=== PATIENT | female | born 1960 | race African-American/Black ===

== ENCOUNTER 2018-11-21 06:48 | Day surgery (SDC) | payer OTHER ==
[~2018-11-21] VITALS: Ht 165.1 cm; Wt 56.8 kg
[2018-11-21] MEDS ORDERED: SOD CHLORIDE 0.9% 1,000 ML IV SCH ×2 (07:57→12:30)
[2018-11-21] MEDS ORDERED: HYDR-4011 PO (08:00)
[2018-11-21] MEDS ORDERED: ATOR20TA38 PO (08:00)
[2018-11-21] MEDS ORDERED: PANT40TA4 PO (08:01)
[2018-11-21] MEDS ORDERED: AMIO200T4 PO (08:01)
[2018-11-21] MEDS ORDERED: ASPI-817 PO (08:02)
[2018-11-21] MEDS ORDERED: CARV3.1260 PO (08:04)
[2018-11-21] MEDS ORDERED: LISI-313 PO (08:04)
[2018-11-21] MEDS ORDERED: IPRA4AER INHALATION (08:05)
[2018-11-21] MEDS ORDERED: POLY17PO6 PO (08:06)
[2018-11-21] MEDS ORDERED: BENZ1LOZ52 MM (08:06)
[2018-11-21] MEDS ORDERED: INSU100I12 SQ (08:08)
[2018-11-21] MEDS ORDERED: INSU100V3 IJ (08:08)
[2018-11-21 08:27] VITALS: Ht 165.1 cm; Wt 56.8 kg
[2018-11-21 08:36] VITALS: BP 120/80; PULSE 94; RESP 20
--- NOTE | 2018-11-21 08:51 | NUR ---
PT ARRIVED VIA AMBULANCE TRANSPORT FROM [facility] BUT ORDERS AND PAPERS WERE ALL FROM THE [facility]. PT CRYING AND UPSET. JUST WANTS TO GO HOME. [facility] AWARE THAT PT IS HERE AND UNWILLING TO SIGN CONSENT UNLESS WE CAN GUARANTEE SHE GOES BACK HOME TO [place]. PT IS BEGGING AND PLEADING TO NOT GO BACK TO [facility]. MY, CHARGE NURSE WAS ABLE TO GET SCANT REPORT AND SOME HX FROM [place] AT [facility]. SIN FROM [facility] CAME TO SPEAK TO PT. PT STILL CRYING AND REFUSED TO SIGN CONSENT. SHE IS ALERT AND ORIENTED. SIN CALLED THE IN HOUSE MAGNETIC TAPE COMPOSER OPERATOR. SHE IS AWARE THE PT IS REFUSING. PT WANTS TO TALK WITH DR. ADAMS. IT'S NOW [address] ADAMS WILL BE ARRIVING TO [facility] SOON. [facility] AWARE PT WANTS TO SPEAK TO DR. ADAMS. Addendum: 11/21/18 at 0904 by CHEO MORRIS RN UNABLE TO DO A COMPLETE INTERVIEW HX SINCE PT IS JUST CRYING AND ASKING TO GO HOME. PT IS ON A MONITOR AND MY HAS ME AT HER BEDSIDE TO KEEP HER COMFORTABLE AND SAFE.
--- NOTE | 2018-11-21 09:55 | NUR ---
FINALLY ABLE TO REACH ASHOK ON THE PHONE AND HE SPOKE WITH HIS , I ALSO SPOKE WITH HER ELDEST DAUGHTER "MARINA" AND THEY ARE WILLING TO TAKE HER BACK HOME AFTER PROCEDURE. PT VERY HAPPY AND CRYING FOR MARIA DEL ROSARIO THAT SHE DOES NOT HAVE TO RETURN TO [facility]. QUALITY ASSURANCE TESTER NUMBER GIVEN TO MARINA TO MAKE ARRANGEMENTS FOR HER MOM TO RETURN HOME AFTER CATH PROCEDURE.
[2018-11-21] MEDS ORDERED: HEPARIN 1000 UNITS/ML 10 ML INJ ONE (11:12)
[2018-11-21] MEDS ORDERED: NITROGLYCERIN (IC) 100 MCG/ML INJ ONE (11:12)
[2018-11-21] MEDS ORDERED: IODIXANOL LOCM 100 ML BTL ONE (11:12)
[2018-11-21] MEDS ORDERED: VERAPAMIL 5 MG INJ ONE (11:12)
[2018-11-21] MEDS ORDERED: FENTAnyl 50 MCG/ML VIAL ONE (11:12)
[2018-11-21] MEDS ORDERED: MIDAZOLAM 1 MG/ML 2 ML INJ ONE (11:12)
[2018-11-21] MEDS ORDERED: LIDOCAINE 1% (MDV) 20 ML INJ ONE (11:12)
--- NOTE | 2018-11-21 12:29 | SIPON ---
Date/Time of Note Date/Time of Note DATE: 11/21/18 TIME: 12:26 Operative Report Preoperative Diagnosis 1. Cardiomyopathy Postoperative Diagnosis 1.non-obstructive cad Operation/Procedure Performed 1.[facility] Surgeon see signature line optometric assistant Wilver Anesthesia: moderate sedation Estimated blood loss: minimal Transfusion Required none Specimen none Grafts/Implants none Complications none FRANCESCA ADAMS Nov 21, 2018 12:29
[2018-11-21] MEDS ORDERED: ACETAMINOPHEN 325 MG TAB PO PRN (12:30)
[2018-11-21] MEDS ORDERED: ONDANSETRON 4 MG INJ IV PRN (12:30)
[2018-11-21] MEDS ORDERED: AL HYDROX/MG HYDROX/SIMETH 30 ML CUP PO PRN (12:30)
[2018-11-21] MEDS ORDERED: morphine 2 MG INJ IV PRN (12:30)
--- NOTE | 2018-11-21 14:20 | NUR ---
PACU Time: 1228 to 1420.
[2018-11-21 14:30] VITALS: BP_SYST 114; BP_SYST 116; BP_DIAS 53; BP_DIAS 70; PULSE 74; PULSE 90; RESP 16; RESP 20
--- NOTE | 2018-11-21 14:40 | NUR ---
1430, RECEIVED PT FROM PACU, VS STABLE. NO CP NO DISCOMFORT. PT TEARFUL, WANTS TO GO HOME AND DOES NOT WANT TO GO TO BOARD AND CARE. DR ADAMS NOTIFIED AND DR ADAMS WANTS PT TO GO TO FACILITY FIRST PRIOR TO GOING HOME. PT MADE AWARE. MY CHARGE NURSE TO TALK TO PT /DUAGHTER.
--- NOTE | 2018-11-21 14:54 | NUR ---
ENDORSED TO MARISSA FELIPE TO ASSUME CARE.
--- NOTE | 2018-11-21 15:00 | NUR ---
TRANSPORTATION FOR PT TO GO BACK TO FACILITY WHERE SHE C[facility] FROM, [facility], WILL BE HERE AT 4 PM. REPORT TO THE FACILITY DONE, SPOKE WITH CHICA PEREZ
--- NOTE | 2018-11-21 15:29 | CARRPT ---
DATE OF PROCEDURE: 11/21/2018 TYPE OF PROCEDURES: 1. Left heart catheterization. 2. Coronary angiography. 3. Moderate conscious sedation. ATTENDING PHYSICIAN: Francesca Hammer MD REFERRING PHYSICIAN: Mian Chairez MD INDICATION: Cardiomyopathy, severely depressed left ventricular ejection fraction. BRIEF HISTORY AND HOSPITAL COURSE: Ms. Will is a 58-year-old female with a history of polysubstan ce abuse, who presented with complaints of shortness of breath who underwent a 2D echo revealing a se verely depressed left ventricular ejection fraction of 15% to 20%. Therefore, the patient was placed on medical therapy and has now been referred to cardiac catheterization lab and assess possibility o f significant obstructive coronary artery disease lending to symptoms of shortness of breath and hist ory of depressed left ventricular function. DESCRIPTION OF PROCEDURE: After informed consent was obtained, the patient was brought to the [facility] cardiac catheterization lab where her right radial area was prepped and draped in the usual sterile fashion. A 2% lidocaine was infiltrated into right radial area in order to ach ieve adequate anesthesia. Using the modified Seldinger technique, the patient's radial artery was ca nnulated and a 6-Russian arterial sheath was placed. A 6-Russian JL3.5 catheter was used to cannulate the left main coronary ostium. With contrast injection, multiple views of the left coronary arterial system were obtained. A JL3.5 was removed over a guidewire and a JR4 was used to cannulate the righ t coronary arterial ostium. With contrast injection, multiple views of the right coronary arterial s ystem was obtained. JR4 was removed over a guidewire and a 6-Russian pigtail was passed down the aort a and placed in LV. LVEDP was measured. A 20 mL of contrast were injected and pulled back across th e aortic valve to assess for significant gradient, which was not and removed. Subsequently, this com pleted the procedure. The patient's sheath was removed. TR band was applied. There were no noted c omplications. FINDINGS: Coronary angiography: Left main is 5 mm, no significant focal stenoses. Circumflex proxi jorge is a 3 mm vessel and has no significant focal stenosis in this portion. It then bifurcates int o the circ continuation AV groove and obtuse marginal has approximately a 40% stenosis there and anot her obtuse marginal with 30% stenosis there. The LAD proximally is a 3.5 mm vessel and proxima lly. Rest of LAD is free of significant focal stenoses. There is 3 proximal and mid branching diago nals, all 2 mm vessels with no significant focal stenoses. The patient's right coronary artery kaela patel is a 3 mm vessel, has a mid body 30% stenosis. Remainder of right coronary is free of signific ant focal stenoses, very tortuous vessel and gives off a 2 mm PDA and a 2.5 mm posterolateral branch. Left ventriculogram: The left ventricular ejection fraction of approximately 30% to 35%, LVEDP of 6 pre and post-LV gram. No significant aortic stenosis by gradient, 1+ mitral regurgitation. TOTAL FLUOROSCOPY TIME: 2.4 minutes. TOTAL CONTRAST: 70 mL. IMPRESSION: 1. Mild nonobstructive coronary artery disease. 2. Low normal left heart filling pressures. 3. Mildly depressed left ventricular systolic function. 4. No significant aortic stenosis by gradient. 5. A 1+ mitral regurgitation. RECOMMENDATIONS: In light of procedure findings at this time, we would: 1. Maximize medical management. 2. Aggressive risk factor reduction. 3. The patient is to be readmitted to the same day surgery and then likely be discharged back to her presenting facility. Dictated By: FRANCESCA DOMINGUEZ/HERNAN Conf#: [id number] DID#: [id number] CC: MIAN CHAIREZ MD;*End*
--- NOTE | 2018-11-21 16:19 | NUR ---
BACK FILLER OPERATOR AND JUNIOR DESIGNER HERE SPEAKING TO PT DUE TO PT EXPRESSING "I DONT WANT TO GO BACK TO THE PLACE", EXPLAINED REPEATEDLY AND SAME ANSWER ALL THE TIME. DR ADAMS AWARE OF THE SITUATION AND NO FURTHER ORDER, STATES HE IS NOT CHANGING THE ORDER TO GO BACK TO FACILITY. BACK FILLER OPERATOR AND JUNIOR DESIGNER AWARE OF MD"S ORDER. TRIED TO CALL THE FAMILY MULTIPLE TIMES, MESSAGED LEFT, NO [place]ER YET AT THIS TIME
[2018-11-21 16:30] VITALS: BP 148/79; PULSE 100; RESP 18
--- NOTE | 2018-11-21 16:40 | NUR ---
TRANSPORTATION LEFT AND CONTINUE TO EXPLAINED TO PT THE REASON WHY SHE NEEDS TO GO BACK TO FACILITY AND CAN GO HOME [facility]. [facility] WAS ABLE TO CONTACT AND STATES WILL SEISMOGRAPH RECORDER THE PT [facility] AT THE FACILITY. PT NOW AGREED TO GO BACK TO FACILITY AND NOW WAITING FOR THE TRANSPORTATION. PT AWARE, IV DCD
--- NOTE | 2018-11-21 16:55 | NUR ---
SW NOTE: DC PLANNING Called the pt's spouse, Tino at [phone]. He convinced the pt to discharge to the [facility] facility. Provided him with the address and he will make arrangements to pick her up tomorrow from the [facility] facility to take her home. If he cannot find transport by family/friends, he stated he plans to rent a car tomorrow to pick the pt up himself. Pt agreed to plan. RN making transport arrangements to [facility] via ambulance.
--- NOTE | 2018-11-21 17:05 | NUR ---
D/C CRITERIA MET, TRANSPORTATION HERE, VSS
== END 2018-11-21 17:05 | disposition home health service (06) ==
LOC: SDS 06:48
PROVIDERS: ATTEND Internal Medicine
DX: I25.10 Atherosclerotic heart disease of native coronary artery without angina pectoris (principal)
CPT/HCPCS: 80048; 82962; 85025; 85610; 85730; 93005; 93458; C1887; J1644; J2250; J3010; Q9967